=== PATIENT | female | born 1950 | race Hispanic/Latino ===

== ENCOUNTER 2018-01-07 22:13 | Emergency (ER) | payer OTHER, MEDICARE ==
[~2018-01-07] VITALS: Ht 162.6 cm; Wt 87.1 kg
[2018-01-07 22:20] VITALS: BP 139/84
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
[2018-01-07] MEDS ORDERED: ORPHENADRINE C100 MG PO (22:47)
[2018-01-07] MEDS ORDERED: DICLOFENAC SODI75 M2 PO (22:47)
== END 2018-01-07 22:57 ==
LOC: ERH 22:13
DX: S16.1XXA Strain of muscle, fascia and tendon at neck level, initial encounter (principal); S29.012A Strain of muscle and tendon of back wall of thorax, initial encounter; V49.40XA Driver injured in collision with unspecified motor vehicles in traffic accident, initial encounter; Y92.410 Unspecified street and highway as the place of occurrence of the external cause